=== PATIENT | female | born 1955 | race Caucasian/White ===

== ENCOUNTER 2022-04-18 13:04 | Emergency (ER) | payer BC ==
[~2022-04-18] VITALS: Ht 152.4 cm; Wt 68.0 kg
[2022-04-18] MEDS ORDERED: ASPIRIN 325 MG TABLET ONE (13:24)
[2022-04-18] MEDS ORDERED: ASPIRIN 325 MG TABLET PO ONE (13:30)
[2022-04-18 13:38] LABS: HEMATOCRIT 42.2 % (31.2-41.9); MEAN CORPUSCULAR HEMOGLOBIN 29.9 uug (24.7-32.8); MEAN CORPUSCULAR VOLUME 88.7 fL (75.5-95.3); PLATELET COUNT (AUTO) 321 K/uL (179-408)
[2022-04-18 13:52] LABS: BILIRUBIN,TOTAL 0.7 mg/dL (0.2-1.0); CREATININE 0.8 mg/dL (0.6-1.3); POTASSIUM 3.5 mmol/L (3.5-5.1); TOTAL PROTEIN, SERUM 7.3 g/dL (6.4-8.2)
--- NOTE | 2022-04-18 15:14 | NUR ---
Patient discharged to home in stable condition with brisk steady gait. Written and verbal after care instructions given. Patient verbalized understanding and compliance of instructions. Stressed follow up with primary doctor or return to ER for worsening s/s. Copies of all ER tests' results were given to patient.
== END 2022-04-18 15:14 | disposition home or self-care (01) ==
LOC: ER 13:04
DX: M25.512 Pain in left shoulder (principal); R73.03 Prediabetes; I10 Essential (primary) hypertension; Z88.0 Allergy status to penicillin; M54.89 Other dorsalgia
CPT/HCPCS: 36415; 71045; 73030; 84484; 85025; 93005; A4663